=== PATIENT | male | born 1985 | race Caucasian/White ===

== ENCOUNTER 2020-05-26 08:39 | Emergency (ER) | payer OTHER ==
[~2020-05-26] VITALS: Ht 177.8 cm; Wt 84.0 kg
[2020-05-26 08:42] VITALS: BP 161/91
[2020-05-26] MEDS ORDERED: TETRACAINE 0.5% OPHTH SOLUTION 4ML BOTTLE. ONE (08:49)
[2020-05-26] MEDS ORDERED: FLUORESCEIN 1MG EYE STRIP. ONE (08:49)
[2020-05-26] MEDS ORDERED: ERYT1OIN6 OP (08:57)
--- NOTE | 2020-05-26 08:57 | PHYS DOC ---
Past History Past Medical History: No Pertinent History Past Surgical History: No Surgical History Alcohol Use: None Drug Use: None General Adult EDM: Chief Complaint: EYE PROBLEMS HPI: HPI: 34-year-old male presents emergency department today with a left eye injury. His son accidentally poked him in his left eye. He has had a mild throbbing in the left eye with tearing. He reports mild blurred vision after this. The pain is sharp shooting nonradiating. Review of systems negative for chest pain shortness of breath abdominal pain vomiting, or any other injuries. All other review of systems is negative. ED course: 34-year-old male presenting with left eye injury. On examination his pupils are equal round and reactive. No foreign bodies present on visual evaluation, however when I performed a blind sweep of the upper lid the qtip removed what appeared to be a small amount of dirt. 2nd sweep showed no additional foreign material. Patient has two corneal abrasions in the 7:00 area. We will start the patient on topical erythromycin. [place] Current Medications: Current Meds: Current Medications Medications (Trade) Dose Ordered Sig/Renetta Start Time Stop Time Status Last Admin Dose Admin Fluorescein Sodium (Ful-Rosaline 1mg) 1 strip STK-MED ONCE 05/26/20 08:49 2 08:49 DC Tetracaine HCl (Tetracaine) 40 drop STK-MED ONCE 05/26/20 08:49 2 08:49 DC Physical Exam: PE: Constitutional: Well developed, well nourished, no acute distress, non-toxic appearance. [] HENT: Normocephalic, atraumatic, bilateral external ears normal, oropharynx moist, no oral exudates, nose normal. [] Eyes: Visual acuity as in nursing notes. Visual santos within normal limits External exam: No lacerations erythema swelling exophthalmos hordeolum or blepharitis. Extraocular movements intact Pupils: Equal round and reactive to light Conjunctiva of the left eye is erythematous. Right eye is unremarkable. Cornea: Shows two abrasions in the 7:00 region without any ulcerations or foreign bodies. Iris: Normal Neck: Normal range of motion, no tenderness, supple, no stridor. [] Cardiovascular:Heart rate regular rhythm, no murmur [] Lungs & Thorax: Bilateral breath sounds clear to auscultation [] Abdomen: Bowel sounds normal, soft, no tenderness, no masses, no pulsatile masses. [] Skin: Warm, dry, no erythema, no rash. [] Back: No tenderness, no CVA tenderness. [] Extremities: No tenderness, no cyanosis, no clubbing, ROM intact, no edema. [] Neurologic: Alert and oriented X 3, normal motor function, normal sensory function, no focal deficits noted. [] Psychologic: Affect normal, judgement normal, mood normal. [] EKG: EKG: [] Radiology/Procedures: Radiology/Procedures: [] Heart Score: Risk Factors: Risk Factors: DM, Current or recent (<one month) smoker, HTN, HLP, family history of CAD, obesity. Risk Scores: Score 0 - 3: 2.5% MACE over next 6 weeks - Discharge Home Score 4 - 6: 20.3% MACE over next 6 weeks - Admit for Clinical Observation Score 7 - 10: 72.7% MACE over next 6 weeks - Early Invasive Strategies Course & Med Decision Making: Course & Med Decision Making Pertinent Labs and Imaging studies reviewed. (See chart for details) [] Dragon Disclaimer: [facility] Disclaimer: This electronic medical record was generated, in whole or in part, using a voice recognition dictation system. Departure Departure: Impression: Primary Impression: Corneal abrasion, left Disposition: 01 DC HOME SELF CARE/HOMELESS Condition: STABLE Patient Instructions: Eye - Corneal Abrasion Additional Instructions: EMERGENCY DEPARTMENT GENERAL DISCHARGE INSTRUCTIONS [place] Return to the emergency department if you have any new or concerning findings. Thank you for coming to [facility] emergency department today and trusting us with you care. We trust that you had a positive experience in our Emergency Department. If you wish to speak to the department management, you may call the Director at [phone]. YOUR FOLLOW UP INSTRUCTIONS ARE FOLLOWS: 1. Do you have a private Doctor? If you do not have a private doctor, please ask for a resource list of physicians or clinics that may be able to assist you with follow up care. 2. If a lab test or culture has been done and does not come back immediately, your results will be reviewed and you will be notified if you need a change in treatment. ADDITIONAL INSTRUCTIONS AND INFORMATION: 1. Your care today has been supervised by a physician who is specially trained in emergency care. Many problems require more than one evaluation for a complete diagnosis and treatment. We recommend that you schedule your follow up appointment as recommended to ensure complete treatment of you illness or injury. If you are unable to obtain follow up care and continue to have a problem, or if your condition worsens, we recommend that you return to the ED. 2. We are not able to safely determine your condition over the phone nor are we able to give sound medical advice over the phone. For these safety reasons, if you call for medical advice we will ask you to come to the ED for further evaluation. 3. If you have any questions regarding these discharge instructions please call the ED at [phone]. SAFETY INFORMATION: In the interest of safety, wellness, and injury prevention; we encourage you to wear your sealbelt, if you smoke; quite smoking, and we encourage family to use a protective helmet for bicycling and other sporting events that present an increased risk for head injury. IF YOUR SYMPTOMS WORSEN OR NEW SYMPTOMS DEVELOP, OR YOU HAVE CONCERNS ABOUT YOUR CONDITION; OR IF YOUR CONDITION WORSENS WHILE YOU ARE WAITING FOR YOUR FOLLOW UP APPOINTMENT; EITHER CONTACT YOUR PRIMARY CARE DOCTOR, THE PHYSICIAN WHOSE NAME AND NUMBER YOU WERE GIVEN, OR RETURN TO THE ED IMMEDIATELY. This condition should be evaluated by your primary care physician and any necessary consulting services for continued management within a few days (1-2) after discharge. Return to the emergency department if you have any new or concerning symptoms including but not limited to fever, chills, nausea, vomiting, intractable pain, any new rashes, chest pain, shortness of breath, uncontrolled bleeding, difficulty breathing, and/or vision loss. Scripts Erythromycin Base (Erythromycin) 1 Gm Oint...g. 1 CM OP QID for corneal abrasion for 5 Days, MISC ~1 cm ribbon into affected eye qid for 5 days Prov: SHAAN GREEN MD 05/26/20 SHAAN GREEN MD May 26, 2020 08:57
== END 2020-05-26 09:03 | disposition home or self-care (01) ==
LOC: ER 08:39
DX: S05.02XA Injury of conjunctiva and corneal abrasion without foreign body, left eye, initial encounter (principal); H53.8 Other visual disturbances; L53.9 Erythematous condition, unspecified; Y08.89XA Assault by other specified means, initial encounter; Y93.89 Activity, other specified; Y92.89 Other specified places as the place of occurrence of the external cause; Y99.8 Other external cause status
CPT/HCPCS: 99283